=== PATIENT | female | born 1935 | race Asian ===

== ENCOUNTER 2019-06-08 18:07 | Emergency (ER) | payer MEDICARE, BC ==
[~2019-06-08] VITALS: Ht 160 cm; Wt 56.2 kg
--- NOTE | 2019-06-08 18:25 | NUR ---
PT IS IN ROOM #2A. DR THOMASON EVALUATED THE PT.
[2019-06-08] MEDS ORDERED: LIDOCAINE 1%-EPI 1:100,000 20 ML VIAL IJ ONE (18:45)
[2019-06-08] MEDS ORDERED: TDAP DIPH,PERTUSS,TET VAC/PF 0.5 ML DISP.SYRIN IM ONE ×2 (18:45→18:49)
[2019-06-08] MEDS ORDERED: NEOMY/BACITRA/POLYMYXIN B OINT UD PACKET TP ONE ×2 (18:45→18:49)
[2019-06-08] MEDS ORDERED: SODIUM BICARBONATE 4.2 % (NEUT) 5 ML VIAL TP ONE (18:45)
--- NOTE | 2019-06-08 19:03 | NUR ---
PT WAS D/C TO HOME AFTER DR THOMASON EVALUATION. D/C INSTRUCTIONS GIVEN TO THE PT BY DR THOMASON. NO BLEEDING. DRESSING IS INTACT.
[2019-06-08 19:09] VITALS: BP 132/68
== END 2019-06-08 19:09 | disposition home or self-care (01) ==
LOC: ER 18:13
DX: S01.112A Laceration without foreign body of left eyelid and periocular area, initial encounter (principal); Z88.0 Allergy status to penicillin; W22.8XXA Striking against or struck by other objects, initial encounter; Y93.89 Activity, other specified; Y92.89 Other specified places as the place of occurrence of the external cause; Y99.8 Other external cause status
CPT/HCPCS: 12011; 90471; 90715; 99283; J3490 ×2; A4663

== ENCOUNTER 2019-06-10 09:19 | Emergency (ER) | payer MEDICARE, BC ==
[~2019-06-10] VITALS: Ht 160 cm; Wt 56.7 kg
--- NOTE | 2019-06-10 09:33 | NUR ---
Patient discharged to home in stable conditon. Written and verbal after care instructions given. Patient verbalizes understanding of instructions. Stresse f/u on Monday for suture removal.
== END 2019-06-10 09:33 | disposition home or self-care (01) ==
LOC: ER 09:19
DX: S01.112D Laceration without foreign body of left eyelid and periocular area, subsequent encounter (principal); Z88.0 Allergy status to penicillin; X58.XXXD Exposure to other specified factors, subsequent encounter
CPT/HCPCS: A4663

== ENCOUNTER 2019-06-14 08:34 | Emergency (ER) | payer MEDICARE, BC ==
[~2019-06-14] VITALS: Ht 160 cm; Wt 56.2 kg
--- NOTE | 2019-06-14 08:48 | NUR ---
Patient ambulated with stable gait. A/Ox4. Patient came for suture removal sp laceration a few days ago.
--- NOTE | 2019-06-14 08:51 | NUR ---
ERMD at bedside for suture removal.
--- NOTE | 2019-06-14 08:56 | NUR ---
Patient discharged to home in stable conditon & brisk steady gait. Written and verbal after care instructions given to patient. Patient verbalizes understanding & compliance of instructions.
== END 2019-06-14 08:58 | disposition home or self-care (01) ==
LOC: ER 08:34
DX: S01.112D Laceration without foreign body of left eyelid and periocular area, subsequent encounter (principal); Z88.0 Allergy status to penicillin; X58.XXXD Exposure to other specified factors, subsequent encounter
CPT/HCPCS: A4663

== ENCOUNTER 2020-09-20 20:34 | Emergency (ER) | payer MEDICARE, BC ==
[~2020-09-20] VITALS: Ht 157.5 cm; Wt 57.2 kg
--- NOTE | 2020-09-20 20:53 | NUR ---
Patient ambulated with steady gait. A/Ox4, speech is clear, speaks in complete sentences. No acute neurological deficits upon assessment. Denies any n/v, OLIVAREZ, or photophobia. [facility], denies KO. Respiratory even and unlabored, no cough no sob. Patient in bed at lowest position with HOB elevated, sr upx2, call light within reach. Fall and safety precautions implemented per protocol.
--- NOTE | 2020-09-20 23:26 | NUR ---
Patient discharged to home in stable condition. Written and verbal after care instructions given. Patient verbalizes understanding of instructions. Stressed follow up or return to ER for worsening s/s. Patient ambulated with steady gait. All belongings returned to patient prior to departure.
[2020-09-20 23:41] VITALS: BP 135/79
== END 2020-09-20 23:41 | disposition home or self-care (01) ==
LOC: ER 20:36
DX: S09.90XA Unspecified injury of head, initial encounter (principal); S01.111A Laceration without foreign body of right eyelid and periocular area, initial encounter; S01.21XA Laceration without foreign body of nose, initial encounter; W01.0XXA Fall on same level from slipping, tripping and stumbling without subsequent striking against object, initial encounter; Y93.01 Activity, walking, marching and hiking; Y92.019 Unspecified place in single-family (private) house as the place of occurrence of the external cause; R03.0 Elevated blood-pressure reading, without diagnosis of hypertension
CPT/HCPCS: 12011; 70450; 99284; J3490; A4663

== ENCOUNTER 2020-09-22 14:15 | Emergency (ER) | payer MEDICARE, BC ==
[~2020-09-22] VITALS: Ht 157.5 cm; Wt 57.2 kg
[2020-09-22 15:09] VITALS: BP 133/75
--- NOTE | 2020-09-22 15:09 | NUR ---
PT WAS EVALUATED BY DR BUTT. PT WAS D/C'd TO HOME. D/C INSTRUCTIONS GIVEN TO THE PT BY DR BUTT.
== END 2020-09-22 15:10 | disposition home or self-care (01) ==
LOC: ER 14:15
DX: S01.111D Laceration without foreign body of right eyelid and periocular area, subsequent encounter (principal); S01.21XD Laceration without foreign body of nose, subsequent encounter; W19.XXXD Unspecified fall, subsequent encounter; Z88.0 Allergy status to penicillin
CPT/HCPCS: A4663

== ENCOUNTER 2025-03-15 11:57 | Emergency (ER) | payer MEDICARE, BC ==
[~2025-03-15] VITALS: Ht 157.5 cm; Wt 56.7 kg
[2025-03-15] MEDS ORDERED: HYDROCODONE/APAP 5-325MG TABLET ONE (12:34)
[2025-03-15] MEDS: HYDROCODONE/APAP 5-325MG TABLET PO ONE (12:38)
[2025-03-15] MEDS ORDERED: HYDR-3972 PO (14:17)
[2025-03-15 15:54] LABS: *BILIRUBIN,URIN 1+ (NEGATIVE); *BLOOD, URINE 2+ (NEGATIVE); *CLARITY,URINE CLEAR (CLEAR); *COLOR,URINE DARK YELLOW (YELLOW); *KETONES,URINE 4+ (NEGATIVE); *PROTEIN,URINE 1+ (NEGATIVE); *UROBILINOGEN,URINE 1.0 E.U./dl (NORMAL); LEUKOCYTE ESTERASE ,URINE NEGATIVE (NEGATIVE); NITRITE, URINE NEGATIVE (NEGATIVE); UGLUCOSE NEGATIVE (NEGATIVE)
[2025-03-15 16:07] LABS: SQUAMOUS EPITHELIAL CELL,UR FEW /HPF (NONE SEEN)
[2025-03-15 16:10] VITALS: BP 129/63
[2025-03-15 16:55] VITALS: BP 131/66; O2SAT 98
== END 2025-03-15 16:58 | disposition home or self-care (01) ==
LOC: ER 11:57
DX: S30.0XXA Contusion of lower back and pelvis, initial encounter (principal); Z88.0 Allergy status to penicillin; Z88.7 Allergy status to serum and vaccine; W01.0XXA Fall on same level from slipping, tripping and stumbling without subsequent striking against object, initial encounter; Y93.89 Activity, other specified; Y92.89 Other specified places as the place of occurrence of the external cause; Y99.8 Other external cause status
CPT/HCPCS: 72192; A4606; A4663